=== PATIENT | female | born 1975 | race Caucasian/White ===

== ENCOUNTER 2017-02-26 14:30 | Emergency (ER) | payer OTHER ==
[~2017-02-26] VITALS: Ht 167.6 cm; Wt 103.4 kg
[~2017-02-26 14:30] MED LIST: ALLEGRA30 MG PO; CELEXA20 MG PO; CLEOCIN150 MG PO; KEFLEX500 MG PO; PREDNISONE10 M1 PO; ULTRAM50 MG PO; ZITHROMAX250 MG PO; cholesterol med
[2017-02-26] MEDS ORDERED: INDOCIN25 MG PO (20:40)
[2017-02-26 21:28] VITALS: BP 125/91
== END 2017-02-26 21:29 | disposition home or self-care (01) ==
LOC: EME 14:30
DX: M25.572 Pain in left ankle and joints of left foot (principal); G89.29 Other chronic pain; S96.912A Strain of unspecified muscle and tendon at ankle and foot level, left foot, initial encounter
CPT/HCPCS: 73610; 93971; 99281; 99284

== ENCOUNTER 2017-07-28 20:57 | Emergency (ER) | payer SELFPAY ==
[~2017-07-28] VITALS: Ht 167.6 cm; Wt 111.7 kg
[~2017-07-28 20:57] MED LIST changes: +INDOCIN25 MG PO
[2017-07-28] MEDS ORDERED: INDOCIN50 MG PO (21:52)
[2017-07-28] MEDS ORDERED: ULTRAM50 MG PO (21:52)
[2017-07-28 22:14] VITALS: BP 143/84
== END 2017-07-28 22:15 | disposition home or self-care (01) ==
LOC: EME 20:57
DX: M77.8 Other enthesopathies, not elsewhere classified (principal); Z88.5 Allergy status to narcotic agent; Z91.040 Latex allergy status
CPT/HCPCS: 73080; 99281; 99284

== ENCOUNTER 2018-01-13 15:16 | Emergency (ER) | payer BC ==
[~2018-01-13] VITALS: Ht 167.6 cm; Wt 119.1 kg
[~2018-01-13 15:16] MED LIST changes: +INDOCIN50 MG PO
[2018-01-13 16:46] LABS: HEMATOCRIT 40.8 % (36.0-46.0); HEMOGLOBIN 14.2 G/DL (11.9-15.5); MCH 32.3 PG (29.0-34.0); MCHC 34.8 G/DL (30.0-36.0); MCV 92.7 FL (83-99); PLATELET COUNT 240 K/uL (156-360); RBC DIS.WIDTH-CV 13.3 % (11.8-14.6); RBC DIS.WIDTH-SD 45.1 % (39-53); WHITE BLOOD COUNT 10.9 K/uL (4.1-10.2)
[2018-01-13 16:55] LABS: ALBUMIN 3.9 g/dL (3.2-4.8); CHLORIDE 107 mEq/L (99-109); POTASSIUM 3.7 mEq/L (3.7-5.4); SODIUM 138 mEq/L (136-147)
[2018-01-13 16:57] LABS: GLUCOSE 91 mg/dL (70-99); TOTAL PROTEIN 7.1 g/dL (6.4-8.3)
[2018-01-13 16:59] LABS: TOTAL BILIRUBIN 0.3 mg/dL (0.0-1.0)
[2018-01-13 17:01] LABS: ALKALINE PHOSPHATASE 63 IU/L (3-129); CREATININE 0.8 mg/dL (0.6-1.3); GFR ESTIMATE (CALCULATED) > 59 mL/min/
[2018-01-13 17:02] LABS: UREA NITROGEN (BUN) 10 mg/dL (9-23)
[2018-01-13 17:03] LABS: AST (GOT) 23 IU/L (2-34)
[2018-01-13 17:04] LABS: ALT (GPT) 22 IU/L (3-49); LIPASE 21 U/L (1.0-51.0)
[2018-01-13 17:12] LABS: QUANTITATIVE HCG < 4.0 MIU/ML
[2018-01-13] MEDS ORDERED: VALIUM5 MG PO (17:57)
[2018-01-13] MEDS ORDERED: NAPROXEN500 MG PO (17:57)
[2018-01-13] MEDS ORDERED: PROMETHAZINE HC25 M1 PO (17:57)
[2018-01-13 18:49] VITALS: BP 113/77
== END 2018-01-13 18:58 | disposition home or self-care (01) ==
LOC: EME 15:16
PROVIDERS: Physician Assistant
DX: M54.12 Radiculopathy, cervical region (principal); R11.2 Nausea with vomiting, unspecified; F32.9 Major depressive disorder, single episode, unspecified; E78.5 Hyperlipidemia, unspecified; Z90.49 Acquired absence of other specified parts of digestive tract; Z88.5 Allergy status to narcotic agent; Z91.040 Latex allergy status
CPT/HCPCS: 72040; 80053; 83690; 84702; 85027; 99281; 99285; J1100; J2550

== ENCOUNTER 2018-01-15 12:02 | Emergency (ER) | payer BC ==
[~2018-01-15] VITALS: Ht 167.6 cm; Wt 119.5 kg
[~2018-01-15 12:02] MED LIST changes: +NAPROXEN500 MG PO; +PROMETHAZINE HC25 M1 PO; +VALIUM5 MG PO
[2018-01-15] MEDS ORDERED: FLEXERIL10 MG PO (14:12)
[2018-01-15] MEDS ORDERED: PREDNISONE20 MG PO (14:12)
[2018-01-15] MEDS ORDERED: MOTRIN800 MG PO (14:12)
[2018-01-15 14:34] VITALS: BP 136/90
== END 2018-01-15 14:36 | disposition home or self-care (01) ==
LOC: EME 12:02
DX: M54.12 Radiculopathy, cervical region (principal); Z88.5 Allergy status to narcotic agent; Z91.040 Latex allergy status
CPT/HCPCS: 99281; 99284; J1885; J7512